=== PATIENT | female | born 1980 | race Caucasian/White ===

== ENCOUNTER 2016-07-07 05:50 | Emergency (ER) | payer SELFPAY ==
[~2016-07-07] VITALS: Ht 160 cm; Wt 74.7 kg
[~2016-07-07 05:50] MED LIST: BACT800T5 PO; METH10TA PO
[2016-07-07 05:56] VITALS: BP 124/86; PULSE 85; RESP 16; TEMP 98.2; O2SAT 99
--- NOTE | 2016-07-07 06:01 | PD ---
HPI Chief Complaint: Flank/Kidney Pain Time Seen by Provider: 06:13 Travel History International Travel<30 days: No Contact w/Intl Traveler<30days: No Traveled to known affect area: No History of Present Illness HPI 35 year-old female presents to the emergency department for complaint of 2 weeks of right lower quadrant abdominal pain and right flank pain and vaginal discharge. Patient denies dysuria frequency urgency or hematuria. Patient is status post tubal ligation. Patient reportedly has had a normal Pap smear and was scheduled 11 years ago to undergo LEEP procedure but never did so and has not had a Pap smear and 11 years. Patient denies any abnormal vaginal bleeding. Patient does admit to vaginal discharge. Patient is sexually active with 1 partner 6 months. Patient reports that she is in a monogamous relationship. Patient reports that movement and ambulation increase her pain. Patient does take methadone for history of opiate dependence and states that this does mask her pain intensity during the day. Patient rates her discomfort as 8/10 in intensity. Patient denies fever or chills. Patient has had nausea but denies vomiting or diarrhea. Patient states that she has decreased oral intake because she is afraid if she eats she will have vomiting but denies anorexia. PFSH Past Medical History Narrative Medical endometriosis, abnormal pap smear, uti, pid, leep, tubal ligation; tobacco use; nursing notes reviewed Cancer: Yes (PRECANCEROUS CERVIX) Diminished Hearing: No Genitourinary: Yes (abnormal Pap smears, leep) Reproductive: Yes (HX PID, Endometriosis ) Tubal Ligation: Yes Past Surgical History Gynecologic Surgery: Yes (CERVIX REMOVED, CULPOSCOPY, LEEP) Social History Alcohol Use: No Tobacco Use: Yes (1/2 PPD) Substance Use: No Allergies-Medications (Allergen,Severity, Reaction): Coded Allergies: No Known Allergies (Verified , 07/07/16) Reported Meds & Prescriptions Reported Meds & Active Scripts Active Reported Methadone (Methadone HCl) 40 Mg Tab 100 Mg PO DAILY Review of Systems Except as stated in HPI: all other systems reviewed are Neg General / Constitutional: No: Fever, Chills HENT: No: Congestion Cardiovascular: No: Chest Pain or Discomfort Respiratory: No: Shortness of Breath Gastrointestinal: Positive: Nausea, Abdominal Pain, No: Vomiting, Diarrhea Genitourinary: Positive: Pelvic Pain, Flank Pain, Discharge, No: Urgency, Frequency, Dysuria, Hematuria, Vaginal Bleeding Musculoskeletal: No: Myalgias, Arthralgias Skin: No Rash Neurologic: No: Weakness Psychiatric: No: Anxiety Endocrine: No: Heat Intolerance Hematologic/Lymphatic: No: Easy Bruising Physical Exam Narrative GENERAL: Well-developed well-nourished female in no acute distress no respiratory distress; triage vital signs and normal range SKIN: Warm and dry. HEAD: Normocephalic. EYES: No scleral icterus. No injection or drainage. NECK: Supple, trachea midline. No JVD or lymphadenopathy. CARDIOVASCULAR: Regular rate and rhythm without murmurs, gallops, or rubs. RESPIRATORY: Breath sounds equal bilaterally. No accessory muscle use. GASTROINTESTINAL: Abdomen soft, right lower quadrant and suprapubic tenderness to direct palpation without guarding or rebound, nondistended. Pelvic exam: Normal external exam no redness induration or lesions; speculum exam scant vaginal discharge no blood no tissue cervical os closed. Bimanual exam no adnexal mass or tenderness uterus is firm and enlarged. MUSCULOSKELETAL: No cyanosis, or edema. BACK: Nontender without obvious deformity. Right-sided reproducible flank/CVA tenderness to palpation and percussion. Data Data Last Documented VS Vital Signs Date Time Temp Pulse Resp B/P Pulse Ox O2 Delivery O2 Flow Rate FiO2 07/07/16 05:56 98.2 85 16 124/86 99 Orders Gc And Chlamydia Pcr (07/07/16 06:11) Wet Prep Profile (07/07/16 06:11) Urinalysis - C+S If Indicated (07/07/16 06:11) Ed Urine Pregnancytest Poc (07/07/16 06:11) Complete Blood Count With Diff (07/07/16 06:28) Basic Metabolic Panel (Bmp) (07/07/16 06:28) Iv Access Insert/Monitor (07/07/16 06:28) Ct Abd/Pel W Iv Contrast(Rout) (07/07/16 ) Ketorolac Inj (Toradol Inj) (07/07/16 07:00) Labs Laboratory Tests Test 07/07/16 07/07/16 06:00 06:37 Urine Color YELLOW Urine Turbidity CLEAR Urine pH 6.5 Urine Specific [place] 1.015 Urine Protein NEG mg/dL Urine Glucose (UA) NEG mg/dL Urine Ketones NEG mg/dL Urine Occult Blood NEG Urine Nitrite NEG Urine Bilirubin NEG Urine Leukocyte Esterase NEG Urine RBC 0-2 /hpf Urine WBC 0-2 /hpf Urine Squamous Epithelial 0-5 /hpf Cells Urine Bacteria NONE /hpf Microscopic Urinalysis Comment CULT NOT INDICATED White Blood Count 8.3 TH/MM3 Red Blood Count 4.02 MIL/MM3 Hemoglobin 13.2 GM/DL Hematocrit 38.1 % Mean Corpuscular Volume 94.9 FL Mean Corpuscular Hemoglobin 32.9 PG Mean Corpuscular Hemoglobin 34.7 % Concent Red Cell Distribution Width 13.0 % Platelet Count 226 TH/MM3 Mean Platelet Volume 7.7 FL Neutrophils (%) (Auto) 53.2 % Lymphocytes (%) (Auto) 37.4 % Monocytes (%) (Auto) 6.9 % Eosinophils (%) (Auto) 1.5 % Basophils (%) (Auto) 1.0 % Neutrophils # (Auto) 4.4 TH/MM3 Lymphocytes # (Auto) 3.1 TH/MM3 Monocytes # (Auto) 0.6 TH/MM3 Eosinophils # (Auto) 0.1 TH/MM3 Basophils # (Auto) 0.1 TH/MM3 CBC Comment DIFF FINAL Differential Comment MDM Medical Decision Making Medical Screen Exam Complete: Yes Emergency Medical Condition: Yes Medical Record Reviewed: Yes Interpretation(s) poc HCG: negative UA: wnl cbc: wnl Differential Diagnosis UTI, ectopic , PID, renal colic, ovarian cyst, uterine/cervical mass, musculoskeletal pain Narrative Course Specimen collected for urinalysis and [id number] hCG Specimens collected and sent for resulting; poc hcg negative and UA within normal range. CT abdomen and pelvis with IV contrast ordered pending labs and CT signed over to on coming Marii Pulido MD Jul 07, 2016 06:01
[2016-07-07] MEDS ORDERED: METH40TA PO (06:13)
[2016-07-07 06:24] LABS: BLOOD, URINE NEG (NEG); GLUCOSE,URINE NEG (NEG); KETONE, URINE NEG (NEG); NITRITE,URINE NEG (NEG); PH, URINE 6.5 (5.0-8.5)
[2016-07-07 06:26] LABS: URINE COLOR YELLOW (YELLW/STRAW)
[2016-07-07 06:27] LABS: COMMENT (UR) CULT NOT INDICATED; CULTURE IF INDICATED CULT NOT INDICATED; RBC, URINE 0-2 /hpf (0-3); SQUAMOUS EPITHELIAL CELL URINE 0-5 /hpf (0-5); WBC, URINE 0-2 /hpf (0-5)
[2016-07-07 06:50] LABS: AUTOMATED NEUTROPHIL # 4.4 TH/MM3 (1.8-7.7); BASOPHIL # 0.1 TH/MM3 (0-0.2); EOSINOPHIL # 0.1 TH/MM3 (0-0.4); EOSINOPHIL % 1.5 % (0.0-4.0); HEMATOCRIT 38.1 % (35.0-46.0); HEMO FLAGS DIFF FINAL; LYMPH % 37.4 % (9.0-44.0); LYMPHOCYTE # 3.1 TH/MM3 (1.0-4.8); MEAN CELL VOLUME 94.9 FL (80.0-100.0); MEAN CORPUSCULAR HEMOGLOBIN 32.9 PG (27.0-34.0); MEAN CORPUSCULAR HGB CONC 34.7 % (32.0-36.0); MONO % 6.9 % (0.0-8.0); NEUT % 53.2 % (16.0-70.0); PLATELET COUNT 226 TH/MM3 (150-450); RED BLOOD COUNT 4.02 MIL/MM3 (4.00-5.30); WHITE BLOOD COUNT 8.3 TH/MM3 (4.0-11.0)
[2016-07-07 06:58] LABS: POTASSIUM 3.9 MEQ/L (3.5-5.1)
[2016-07-07] MEDS ORDERED: KETOROLAC TROMETHAMINE 30 MG/ML (IVP) VIAL IV PUSH ONE (07:00)
[2016-07-07 07:01] LABS: BICARBONATE 25.7 MEQ/L (21.0-32.0)
[2016-07-07] MEDS ORDERED: IOHEXOL 350 MG/ML 10 ML VIAL (for RAD DIAG) IV ONE (07:31)
[2016-07-07 08:08] VITALS: RESP 18
--- NOTE | 2016-07-07 08:09 | RADHPO ---
EXAM DATE/TIME: 07/07/2016 07:18 [facility] COMPARISON: No previous studies available for comparison. INDICATIONS : Right lower quadrant and flank pain. IV CONTRAST: 85 cc Omnipaque 350 (iohexol) IV ORAL CONTRAST: No oral contrast ingested. RADIATION DOSE: 9.09 CTDIvol (mGy) MEDICAL HISTORY : Endometriosis. SURGICAL HISTORY : Tubal ligation. ENCOUNTER: Initial ACUITY: 2 weeks PAIN SCALE: 7/10 LOCATION: Right lower quadrant TECHNIQUE: Volumetric scanning of the abdomen and pelvis was performed. Using automated exposure control and ad justment of the mA and/or kV according to patient size, radiation dose was kept as low as reasonably achievable to obtain optimal diagnostic quality images. FINDINGS: There is parenchymal scarring on the right. The liver and spleen are free of focal defects. The gallb ladder and pancreas demonstrate no abnormality. The adrenal glands are normal. The kidneys demonstrat e no evidence of solid renal mass or hydronephrosis. There is a multilocular mass measuring 3.5 x 2.5 CM anterior to the right psoas muscle. Considering the history of endometriosis this may reflect end ometrioma. MRI is recommended for further evaluation if clinically indicated.No para-aortic adenopath y is seen. Examination of the pelvis demonstrates no evidence of pathologic free fluid or pelvic mass. No abnorm ally enlarged inguinal or retroperitoneal lymph nodes are present. The bladder is unremarkable. There is a large amount of fecal material throughout the colon consistent with constipation. CONCLUSION: 1. Possible endometrioma at the root of the mesentery as described above. MRI with contrast is recomm ended for further evaluation if clinically indicated. Brent Lala MD on July 07, 2016 at 8:03 Board Certified Radiologist. This report was verified electronically.
[2016-07-07] MEDS ORDERED: VIBR100C PO (08:52)
[2016-07-07] MEDS ORDERED: TRAM50TA PO (08:52)
--- NOTE | 2016-07-07 08:56 | PD ---
Data Data Last Documented VS Vital Signs Date Time Temp Pulse Resp B/P Pulse Ox O2 Delivery O2 Flow Rate FiO2 07/07/16 08:08 18 07/07/16 05:56 98.2 85 124/86 99 Orders Gc And Chlamydia Pcr (07/07/16 06:11) Wet Prep Profile (07/07/16 06:11) Urinalysis - C+S If Indicated (07/07/16 06:11) Ed Urine Pregnancytest Poc (07/07/16 06:11) Complete Blood Count With Diff (07/07/16 06:28) Basic Metabolic Panel (Bmp) (07/07/16 06:28) Iv Access Insert/Monitor (07/07/16 06:28) Ct Abd/Pel W Iv Contrast(Rout) (07/07/16 ) Ketorolac Inj (Toradol Inj) (07/07/16 07:00) Iohexol 350 Inj (Omnipaque 350 Inj) (07/07/16 07:31) Azithromycin Powd Pack (Zithromax Powd P (07/07/16 09:00) Labs Laboratory Tests Test 07/07/16 07/07/16 07/07/16 06:00 06:25 06:37 Urine Color YELLOW Urine Turbidity CLEAR Urine pH 6.5 Urine Specific [place] 1.015 Urine Protein NEG mg/dL Urine Glucose (UA) NEG mg/dL Urine Ketones NEG mg/dL Urine Occult Blood NEG Urine Nitrite NEG Urine Bilirubin NEG Urine Leukocyte Esterase NEG Urine RBC 0-2 /hpf Urine WBC 0-2 /hpf Urine Squamous Epithelial 0-5 /hpf Cells Urine Bacteria NONE /hpf Microscopic Urinalysis Comment CULT NOT INDICATED Clue Cells (Wet Prep) NONE SEEN Vaginal Trichomonas (Wet Prep) NONE SEEN Vaginal Yeast (Wet Prep) NONE SEEN White Blood Count 8.3 TH/MM3 Red Blood Count 4.02 MIL/MM3 Hemoglobin 13.2 GM/DL Hematocrit 38.1 % Mean Corpuscular Volume 94.9 FL Mean Corpuscular Hemoglobin 32.9 PG Mean Corpuscular Hemoglobin 34.7 % Concent Red Cell Distribution Width 13.0 % Platelet Count 226 TH/MM3 Mean Platelet Volume 7.7 FL Neutrophils (%) (Auto) 53.2 % Lymphocytes (%) (Auto) 37.4 % Monocytes (%) (Auto) 6.9 % Eosinophils (%) (Auto) 1.5 % Basophils (%) (Auto) 1.0 % Neutrophils # (Auto) 4.4 TH/MM3 Lymphocytes # (Auto) 3.1 TH/MM3 Monocytes # (Auto) 0.6 TH/MM3 Eosinophils # (Auto) 0.1 TH/MM3 Basophils # (Auto) 0.1 TH/MM3 CBC Comment DIFF FINAL Differential Comment Sodium Level 139 MEQ/L Potassium Level 3.9 MEQ/L Chloride Level 106 MEQ/L Carbon Dioxide Level 25.7 MEQ/L Anion Gap 7 MEQ/L Blood Urea Nitrogen 11 MG/DL Creatinine 0.93 MG/DL Estimat Glomerular Filtration 69 ML/MIN Rate Random Glucose 99 MG/DL Calcium Level 8.9 MG/DL MDM Supervised Visit with TRINO: No Narrative Course This case is checked out to me by Dr. Menendez at 7 AM. I have evaluated the patient. I reviewed the entirety of the workup with her. Her urine is clean and labs are normal. She is not I reviewed the CT findings with her. She has a 3.52.5 cm right sided mass near the right psoas muscle. Discussed that this could be further evaluated with outpatient MRI. She should start with primary care physician and discuss this. She should also get [employer] visit. I wrote her some medication for discomfort and doxycycline. She reports a partner has Chlamydia. I also gave HER-2 grams of oral Zithromax here. Discussed potential for drowsiness and constipation. Discussed that her CT shows a lot of stool in her colon. She will take a stool softener. Diagnosis Primary Impression: Pelvic mass in female Additional Impression: Abdominal pain Qualified Code: R10.31 - Right lower quadrant abdominal pain Additional Instruction: The patient was advised to follow up with their physician and return if they worsen. The patient was warned about potential sedation for the medications they will receive on prescription. Med/Other Pt SpecificInfo: Prescription(s) given Scripts Doxycycline Hyclate (Vibramycin)100 Mg [id number] Mg PO BID #14 CAP Ref 0 Prov:Nathan Castillo MD 07/07/16 Tramadol 50 Mg Tab50 Mg PO Q6H PRN (PAIN) #20 TAB Ref 0 Prov:Nathan Castillo MD 07/07/16 Disposition: 01 DISCHARGE HOME Condition: Stable Nathan Castillo MD Jul 07, 2016 08:56
[2016-07-07] MEDS ORDERED: AZITHROMYCIN PWD FOR SUSP 1 GM PACKET PO ONE (09:00)
[2016-07-07 09:09] VITALS: BP 122/78
[2016-07-07 11:28] LABS: CHLAMYDIA PCR NOT DETECTED (NOT DETECT); NEISSERIA PCR NOT DETECTED (NOT DETECT)
[2016-07-07] MEDS ORDERED: VENTAER INH (18:01)
== END 2016-07-07 09:10 | disposition home or self-care (01) ==
LOC: PHED 05:50
DX: R19.00 Intra-abdominal and pelvic swelling, mass and lump, unspecified site (principal); N80.9 Endometriosis, unspecified; F17.210 Nicotine dependence, cigarettes, uncomplicated
CPT/HCPCS: 74177; 80048; 81001; 84703; 85025; 87210; 87491; 87591; 96374; 99284; J1885; Q9967

== ENCOUNTER 2016-07-07 16:12 | Emergency (ER) | payer SELFPAY ==
[~2016-07-07 16:12] MED LIST changes: +METH40TA PO; +TRAM50TA PO; +VIBR100C PO
[2016-07-07 16:18] VITALS: BP 153/90; PULSE 124; RESP 24; TEMP 98.5; O2SAT 95
[2016-07-07 16:48] VITALS: BP 139/69; PULSE 103; RESP 20; TEMP 98.5; O2SAT 96
[2016-07-07] MEDS ORDERED: RESP: ALBUTEROL 2.5 MG/IPRATROPIUM 0.5 MG NEB (SCH) NEB ONE (17:30)
--- NOTE | 2016-07-07 17:47 | RADHPO ---
EXAM DATE/TIME: 07/07/2016 17:38 [facility] COMPARISON: No previous studies available for comparison. INDICATIONS : Shortness of breath. MEDICAL HISTORY : None. SURGICAL HISTORY : Tubal ligation. ENCOUNTER: Initial ACUITY: 1 day PAIN SCORE: 0/10 LOCATION: Bilateral chest FINDINGS: A single view of the chest demonstrates the lungs to be symmetrically aerated without evidence of mas s, infiltrate or effusion. The cardiomediastinal contours are unremarkable. Osseous structures are intact. CONCLUSION: No acute disease. Kj Mendiola MD FACR on July 07, 2016 at 17:45 Board Certified Radiologist. This report was verified electronically.
[2016-07-07] MEDS ORDERED: VENTAER INH (18:01)
--- NOTE | 2016-07-07 18:10 | PD ---
HPI Chief Complaint: Cardiac Complaint Time Seen by Provider: 17:10 Travel History International Travel<30 days: No Contact w/Intl Traveler<30days: No Traveled to known affect area: No History of Present Illness HPI The patient was seen and examined in the presence of the nurse. This patient was watching TV and became short of breath somewhat anxious. She was discharged this morning after extensive workup. She denies chest pain or fever. No productive cough. Symptoms severity is moderate. Oxygen saturations are 97-99% on room air PFSH Past Medical History Cancer: Yes (PRECANCEROUS CERVIX) Diminished Hearing: No Genitourinary: Yes (abnormal Pap smears, leep) Reproductive: Yes (HX PID, Endometriosis ) ?: Not : 6 Para: 2 Miscarriage: 1 : 3 Tubal Ligation: Yes Past Surgical History Gynecologic Surgery: Yes (CERVIX REMOVED, CULPOSCOPY, LEEP) Social History Alcohol Use: No Tobacco Use: Yes (5 CIGARETTES A DAY) Substance Use: No Allergies-Medications (Allergen,Severity, Reaction): Coded Allergies: No Known Allergies (Verified , 07/07/16) Reported Meds & Prescriptions Reported Meds & Active Scripts Active Ventolin Hfa 18 GM Inh (Albuterol Sulfate) 90 Mcg/Act Aer 2 Puff INH Q4H PRN Vibramycin (Doxycycline Hyclate) 100 Mg Cap 100 Mg PO BID Tramadol (Tramadol HCl) 50 Mg Tab 50 Mg PO Q6H PRN Reported Methadone (Methadone HCl) 40 Mg Tab 100 Mg PO DAILY Review of Systems General / Constitutional: No: Fever HENT: No: Headaches Cardiovascular: No: Chest Pain or Discomfort Respiratory: Positive: Shortness of Breath Physical Exam Narrative RESPIRATORY: Respiratory effort unlabored, no retractions or use of accessory muscles. Breath sounds are clear and symmetric. CARDIOVASCULAR: Regular rate and rhythm without murmur. Extremities showed no edema or varicosities. NECK: Symmetrical appearance, midline trachea. No mass or crepitus. Thyroid without enlargement, tenderness, or mass. SKIN: Focused skin assessment reveals no rash or ulcers. Skin is warm and dry. Palpation shows no induration or nodules. Data Data Last Documented VS Vital Signs Date Time Temp Pulse Resp B/P Pulse Ox O2 Delivery O2 Flow Rate FiO2 07/07/16 16:48 98.5 103 20 139/69 96 Nasal Cannula 2 Orders Chest, Single Ap (07/07/16 ) Albuterol-Ipratropium Neb (Duoneb Neb) (07/07/16 17:30) MDM Medical Decision Making Medical Screen Exam Complete: Yes Emergency Medical Condition: Yes Medical Record Reviewed: Yes Differential Diagnosis Pneumonia, pulmonary edema, pneumothorax, anxiety Narrative Course I have reviewed the patient's electronic medical record. Reviewed her extensive workup from this morning. I gave her nebulizer treatment which she reports improvement I reviewed her chest x-ray which looks normal i prescribed her an albuterol inhaler Etiology unclear but I don't think we need to pursue PE All symptoms have resolved and she feels better and saturations are excellent I reviewed her EKG which shows sinus rhythm but no ectopy or ST elevation Diagnosis Primary Impression: Shortness of breath Additional Instructions: The patient was advised to follow up with their physician and return if they worsen. Med/Other Pt SpecificInfo: Prescription(s) given Scripts Albuterol 18 GM Inh (Ventolin Hfa 18 GM Inh)90 Mcg/Act Aer2 Puff INH Q4H PRN ( SHORTNESS OF BREATH) #1 INHALER Ref 0 Prov:Nathan Castillo MD 07/07/16 Disposition: 01 DISCHARGE HOME Condition: Stable Nathan Castillo MD Jul 07, 2016 18:10
--- NOTE | 2016-07-09 21:32 | EKG ---
Date Performed: 07/07/2016 Time Performed: 16:13:28 PTAGE: 35 years EKG: Sinus tachycardia Possible left atrial abnormality Extensive ST-T changes are abnormal Abno rmal ECG PREVIOUS TRACING : 06/28/2015 10.29 DOCTOR: Garcia Boudreaux Interpretating Date/Time 07/09/2016 21:29:00
== END 2016-07-07 18:31 | disposition home or self-care (01) ==
LOC: PHED 16:12
DX: R06.02 Shortness of breath (principal); Z72.0 Tobacco use
CPT/HCPCS: 71010; 93005; 94664; 99284